=== PATIENT | female | born 1955 | race Caucasian/White ===

== ENCOUNTER 2025-11-08 09:24 | Outpatient (CLI) | payer MEDICARE, OTHER ==
--- NOTE | 2025-11-08 11:53 | RADIOLOGY REPORT ---
EXAM: MR MRI UPPER EXTREMITY LEFT HISTORY: PAIN IN LEFT WRIST COMPARISON: None TECHNIQUE: Multiplanar, multisequence MRI of the left wrist was performed. FINDINGS: Extensor tendons: There is ulnar subluxation of the extensor carpi ulnaris tendon with mild fluid distention of tendon sheath mild tendinosis with no tear. Flexor tendons: Mild fluid distention of flexor digitorum and flexor pollicis longus tendons noted.. Intercarpal ligaments: Scapholunate and lunotriquetral ligaments are torn with a widening of scapholunate and lunotriquetral interval and volar dislocation/ subluxation of the lunate. Triangular fibrocartilage: Deformity and attenuation of the articular disc with evidence of radial and central tears. Carpal tunnel: Unremarkable. Median nerve is normal. Guyon's canal: Unremarkable. Ulnar nerve is normal. Ulnar variance: Neutral. Joints: Lunate is dislocated/subluxed on the volar aspect of capitellar head with diffuse bone marrow edema noted. Capitellum and hamate are migrated proximally. 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 Moderate 1st CMC joint osteoarthritis mild degenerative radial subluxation. Degenerative changes of the distal radial capitellar joint noted associated large joint effusion. Bone marrow: No suspicious lesion. Bone marrow edema is seen in the lunate. Musculature: Thenar, hypothenar and intrinsic muscles of the hand are within normal limits. Other: None. IMPRESSION: 1. 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 Recommend clinical and biochemical correlation. 2. Maceration of triangular fibrocartilage. 3. 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 Diffuse bone marrow edema is seen in the lunate that could be degenerative or posttraumatic in nature. No evidence of fracture. 4. Extensor carpi ulnaris subluxation, tenosynovitis and mild tendinosis with no evidence of tear. 5. Flexor tenosynovitis with no evidence of tendinosis or tendon tear.
== END 2025-11-08 23:59 | disposition home or self-care (01) ==
LOC: MRI02 09:24
PROVIDERS: ATTEND Family Medicine
DX: S63.022 Subluxation of radiocarpal joint of left wrist (principal); M25.532 Pain in left wrist; M19.032 Primary osteoarthritis, left wrist; M65.842 Other synovitis and tenosynovitis, left hand; M18.12 Unilateral primary osteoarthritis of first carpometacarpal joint, left hand; X58.XXXA Exposure to other specified factors, initial encounter; Y92.89 Other specified places as the place of occurrence of the external cause; Y93.89 Activity, other specified; Y99.8 Other external cause status
CPT/HCPCS: 73221